=== PATIENT | female | born 1980 | race Caucasian/White ===

== ENCOUNTER 2018-08-15 13:52 | Inpatient (IN) ==
--- NOTE | 2018-08-15 14:52 | Anesthesia Evaluation PreOp ---
Date of Encounter: 08/15/18 Time of Encounter: 14:30 - Past History Planned Operation: RCS Cardiac History: Denies any Significant Hx Pulmonary History: Denies Any Significant HX REGISTERED NURSE NURSERY History: Denies Any Significant HX Other Medical History: Denies Any Significant HX Anesthesia History: No Prior Anesthetic Complications : Yes Test: Positive Alcohol Use: none Drug use: none Medications and Allergies Amoxicillin 875 mg PO BID #20 tablet 05/25/15 [Rx] Meclizine HCl [Verticalm] 25 mg PO TID PRN #30 tablet 05/25/15 [Rx] Ondansetron [Zofran] 8 mg PO TID PRN #9 tablet 05/25/15 [Rx] Pseudoephedrine [Sudafed] 30 - 60 mg PO Q4HR PRN #30 tablet 05/25/15 [Rx] Vitamin Tablet 1 tab PO DAILY 08/09/18 [History] Allergy/AdvReac Type Severity Reaction Status Date / Time No Known Allergies Allergy Verified 08/09/18 15:24 - Meds/Allergy Pre-op Review Medications Reviewed: Yes Allergies Reviewed: No Beta Blockers on Current Med List: No Anesthesia Exam - HEENT Pupil (Motor): Pupils equal Mallampati: II Teeth: Normal Oral Opening: Greater than 3 - REGISTERED NURSE NURSERY LOC: Oriented REGISTERED NURSE NURSERY Motor: Normal RUE, Normal LUE, Normal RLE, Normal LLE, Normal Face REGISTERED NURSE NURSERY Sensory: Normal: RUE, LUE, RLE, LLE, Face - Cardiac Rhythm: Regular Murmur: None JVD: No Carotid Bruit: No - Pulmonary Breath Sounds: bilateral Clear Respiratory Effort: Symmetrical Anesthesia Assess/Plan ASA Score: 3 Level of consciousness: Cooperative Anesthetic Plan: Spinal Monitoring Plan: Standard Monitors
[2018-08-15] MEDS ORDERED: CeFAZolin Syr 3,000MG/30 ML 3,000 MG/30 ML SYRINGE IVPB ONE (14:58)
[2018-08-15] MEDS ORDERED: Famotidine 20 MG/2 ML VIAL IVP ONE (14:58)
[2018-08-15] MEDS ORDERED: Ringers Solution, Lactated 1,000 ML IVC ONE (14:58)
[2018-08-15] MEDS ORDERED: Metoclopramide 10 MG/2 ML VIAL IVP ONE (14:58)
[2018-08-15] MEDS ORDERED: Ringers Solution, Lactated 1,000 ML IVC SCH (15:00)
--- NOTE | 2018-08-15 15:43 | OB/GYN History & Physical ---
Date of Encounter: 08/15/18 Time of Encounter: 15:41 Assessment and Plan (1) Previous section Current visit: Yes Status: Acute 38yo presents for repeat LTCS at term 1. Scheduled rLTCS - hx of 2 prior LTCS performed by Dr. Holcomb - poor PNC this , luckily with good dating (1st TM) - large infant, measuring 40+wks GA - consents signed with patient in office - labs ordered and pending DISPO: Admitted to labor and delivery for scheduled rLTCS at term. Scant PNC, NICU to be notified. MD SANDRA History of Present Illness Chief complaint: 38yo female scheduled CS HPI: Ms. Rivera is a 38 year old female at 39+1wks GA who presents for scheduled repeat LTCS Patient with scant PNC. Patient recently seen by Dr. Holcomb in the office last week at 38+ weeks GA. Patient luckily had intermittent PNC in [place]. Hx of prior deliveries 10+ years ago, performed by Dr. Holcomb. Uncomplicated. No indication of uterine window with prior deliveries. Patient is morbidly obese, and short stature. Patient was consented for delivery by repeat LTCS. Past Med Surg Social Fam HX - Past Medical History Medical history: no medical history Psychiatric history: anxiety, PTSD - Past Surgical History Surgical History: other Additional surgical history: left rotator cuff - Social History Smoking Status: Never smoker Smokeless Tobacco Status: No Alcohol use: none Drug use: none - Family History Father Living Status: Hx Family Cardiac Disorders: Yes Hx Family Respiratory Disorders: Yes Hx Family Cancer: Yes (lung cancer) Hx Family GI Disorders: No Hx Family Genitourinary Disorders: No Hx Family Endocrine Disorder: No Hx Family Musculoskeletal Disorders: No Hx Family Neuromuscular Disorders: No Hx Family Neurologic Disorders: No Hx Family HEENT Disorders: No Hx Family Autoimmune Disorders: No Hx Family Reproductive Disorders: No Hx Family Psychosocial Disorders: No Hx Family Medical Disorders: No Obstetrical History - Pregnancies : 3 Term: 2 Livin Medications and Allergies Vitamin Tablet 1 tab PO DAILY 08/09/18 [History] Allergy/AdvReac Type Severity Reaction Status Date / Time No Known Allergies Allergy Verified 08/15/18 14:51 Exam - Constitutional Constitutional: well developed, well nourished, no acute distress, average body habitus - HEENT HEENT: Normocephaly, Mucus Membranes Moist - Neck Neck exam: full ROM - Lungs Respiratory exam: CTAB - Cardiovascular Cardiovascular exam: RRR - Abdomen Abdomen: Present: bowel sounds normal - Vagina Vagina: Present: normal moisture - Uterus Uterus exam: Present: normal size - Anus/Rectum Anus/Rectum: Present: normal perianal skin Results All other labs normal.
[2018-08-15 16:03] LABS: Amphetamine Screen,Urine Negative ng/mL (Cutoff=1000); Barbiturate Screen,Urine Negative ng/mL (Cutoff=200); Benzodiazepines Screen,Urine Negative ng/mL (Cutoff=200); Cannabinoid Screen,Urine Negative ng/mL (Cutoff = 50); Cocaine Screen,Urine Negative ng/mL (Cutoff= 300); Opiate Screen,Urine Negative ng/mL (Cutoff=300); Phencyclidine Screen,Urine Negative ng/mL (Cutoff=25)
[2018-08-15 16:42] LABS: Basophils % 0.3 %; Eosinophils # 0.1 K/mcL (0.0-0.6); Eosinophils % 0.5 %; Hematocrit 38.4 % (35.3-44.9); Hemoglobin 12.6 g/dL (11.5-15.4); Immature Granulocytes % 0.6 % (0-4); Lymphocytes # 1.4 K/mcL (0.6-4.6); Lymphocytes % 12.9 %; Mean Corpuscular HGB Conc 32.8 g/dL (31.6-35.5); Mean Corpuscular Hemoglobin 28.1 pg (28.0-33.3); Mean Corpuscular Volume 85.5 fL (83.0-100.0); Mean Platelet Volume 12.8 fL (9.4-12.4); Monocytes # 0.7 K/mcL (0.0-1.3); Monocytes % 6.1 %; Neutrophils # 8.7 K/mcL (1.6-8.9); Platelet Count 248 K/mcL (140-400); Red Blood Count 4.49 M/mcL (3.82-4.97); Red Cell Distribution Width 13.6 % (11.5-14.5); Segmented Neutrophils % 79.6 %
[2018-08-15] MEDS ORDERED: Ringers Solution, Lactated 1,000 ML ONE (16:42)
[2018-08-15] MEDS ORDERED: *HR* FentaNYL (PF) 100 MCG/2 ML VIAL ONE (16:43)
[2018-08-15] MEDS ORDERED: Dexamethasone 4 MG/ML VIAL ONE (16:43)
[2018-08-15] MEDS ORDERED: Ondansetron 4 MG/2 ML VIAL ONE (16:43)
[2018-08-15] MEDS ORDERED: *HR* Oxytocin 10 UNIT/ML VIAL IM ONE (16:43)
[2018-08-15] MEDS ORDERED: *HR* Morphine Sulfate/PF 10 MG/10 ML AMPUL ONE (16:43)
[2018-08-15] MEDS ORDERED: EPHEDrine 50 MG/ML VIAL ONE (16:58)
[2018-08-15] MEDS ORDERED: *HR* Phenylephrine 10 MG/ML VIAL ONE (16:59)
[2018-08-15] MEDS ORDERED: Lidocaine -MPF 1% 5 ML AMPUL ONE (17:00)
--- NOTE | 2018-08-15 17:43 | Anesthesia Procedures ---
Date of Encounter: 08/15/18 Time of Encounter: 16:50 Procedures: Anesthesia - Epidural/Spinal Patient ID/Chart reviewed: Yes Patient examined: Yes OB Eval: Gestational age: 40.3 OB Eval: : 5 OB Eval: Hx Para: 3 OB Eval: Contractions: Non-stressed pattern Consent Obtained: Yes Site Prep: Aseptic Technique, Sterile prep and drape, Povidone-Iodine 1% Patient position: upright Amount of Local Anesthetic used: 3 Interspace Used: L4-L5 Loss of Resistance (LAUREN): No Blood: No CSF: Yes Paresthesia: Yes Spinal Needle Gauge: 22 Procedure: TOLERATED PROCEDURE WELL SAB BUPIVICAINE 0.25% 2.2ML FENTANYL 10MCG, DURAMORPH 0.3MG Vitals + FHT's: STABLE THROUGHOUT SEE NURSING NOTES
[2018-08-15] MEDS ORDERED: Simethicone 80 MG TAB.CHEW PO PRN (18:02)
[2018-08-15] MEDS ORDERED: Metoclopramide 10 MG/2 ML VIAL IVP PRN (18:02)
[2018-08-15] MEDS ORDERED: Ondansetron 4 MG/2 ML VIAL IVP PRN (18:02)
[2018-08-15] MEDS ORDERED: *HR* OxyCODONE/APAP 5/325 TABLET PO PRN (18:02)
[2018-08-15] MEDS ORDERED: Sennosides 8.6 MG TABLET PO PRN (18:02)
--- NOTE | 2018-08-15 18:13 | OB/GYN Procedure Note ---
Section - Date of procedure: 08/15/18 Preop diagnosis: desires repeat Post-op diagnosis: same Procedure: repeat low transverse Surgeon: Christina Bolaños (anatomic pathology assistant Dr. Holcomb 2/2 macrosomic baby and obese mother) Quantitated Blood Loss: 500 Was there an anatomic pathology assistant present: Yes Plasterer Journeyman: Buddy Holcomb Anesthesia Type: Epidural section complications: none Disposition: L&D Recovery Room Specimens: Placenta, Cord segment, Cord blood - Infant (s) Infant A Infant Delivery Date: 08/15/18 Delivery Time: 17:27 Presentation: vertex Position: OA Gender: Male Viability: Viable Pounds: 9 Ounces: 12 Specimens collected: cord blood Placenta: spontaneous Cord: other - Narrative Narrative: Patient was taken to the OR where spinal anesthesia was found to be adequate. The patient was prepped and draped in the usual, sterile fashion. Pfannenstiel skin incision was performed and taken down to the level of the fascia. Once scored, we were able to extend bilaterally. FAscia was then tented up and dissected down from the rectus abdominis. We then turned inferiorly and performed this as well. We then bluntly the rectus abdominis and entered the peritoneum. Bladder blade was placed as the lower uterine segment was visualized. We were able appreciated the reflection of the bladder. We performed a hysterotomy superior to the reflection of the bladder. We then bluntly the hysterotomy incision both superiorly and inferiorly. AROM was performed for clear fluid. Vertex presentation appreciated. With adequate fundal pressure we were able to deliver term baby boy. was vigorous and crying. Delayed cord clamping for 60 seconds prior to cord clamping. Cord blood was collected. Segment was taken, gases were not sent. Placenta was removed with manual manipulation. Uterus was exteriorized as we then cleared the entirety of the endometrial contents. Using 0-vicryl, we then began closing the hystertomy in a running locked fashion. Once found to be hemostatic after closure, we then returned the uterus back into the abdomen. We again appreciated hemostasis across the hysterotomy. Irrigation was performed with no active bleeding. Using loop 0-PDS, we closed both layers of the fascia. Again, hemostasis was appreciated. Small interrupted sutures were then placed along the subcutaneous fat. We then used ramírez to close the pfannenstiel skin incision. A MASHA was then placed on top of the wound incision with concern for possible wound infection given patient habitus. EBL: 500mL time of delivery: 1727 Male 4420 grams 9#12oz Apgars 8,9 Dr. Holcomb was present for the delivery of his patient as she was a repeat LTCS, with a known macrosomic baby. All counts were correct x3. MD SANDRA
[2018-08-15] MEDS ORDERED: Oxytocin 20 units/ LR 1000 mL 20 UNIT/1,000 ML BAG IVC SCH (18:15)
[2018-08-15] MEDS ORDERED: Acetaminophen IV 1,000 MG/100 ML INFUS..BTL IVPB ONE (18:46)
[2018-08-15] MEDS ORDERED: *HR* HYDROmorphone (PF) 1 MG/ML SYRINGE IVP PRN (18:46)
[2018-08-15] MEDS ORDERED: Ondansetron 4 MG/2 ML VIAL IVP ONE (18:46)
[2018-08-15] MEDS ORDERED: *HR* Promethazine 25 MG/ML VIAL IVP PRN (18:46)
[2018-08-15] MEDS ORDERED: Ketorolac 30 MG/ML VIAL IVP ONE (18:46)
[2018-08-15] MEDS ORDERED: Albuterol 2.5 MG/3 ML NEBULIZER IH ONE (18:46)
--- NOTE | 2018-08-15 23:29 | Anesthesia Evaluation Post Op ---
Date of Encounter: 08/15/18 Time of Encounter: 22:00 - Vital Signs Vital Signs: Vital Signs/O2 Sat/Glucose, Most Current Temp Pulse Resp BP Pulse Ox 08/15/18 21:45 98.1 F 96 16 127/85 96 08/15/18 21:15 98.1 F 103 16 135/82 95 08/15/18 20:45 98.1 F 90 16 137/84 95 - Lungs Lungs: Clear Ascult./Percussion - Airway Airway: Non-obstructed - Cardiovascular Regular Rate - Mental Status Mental Status: Alert & Oriented, Answers Appropriately - Pain Pain Scale: 0 - Nausea Vomiting Nausea Vomiting: Not Present - Hydration Hydration: NPO, Lopez catheter - Discharge PostOp Status: Transfer Patient to floor
[2018-08-16] MEDS: ceFAZolin 1,000 MG in Water for inj. (sterile) 20 ML 10 ML IVP SCH ×3 (00:22→16:56)
[2018-08-16 07:17] LABS: Basophils % 0.2 %; Eosinophils % 0.1 %; Hematocrit 31.4 % (35.3-44.9); Immature Granulocytes % 0.5 % (0-4); Lymphocytes # 1.5 K/mcL (0.6-4.6); Lymphocytes % 8.2 %; Mean Corpuscular HGB Conc 33.8 g/dL (31.6-35.5); Mean Corpuscular Hemoglobin 28.3 pg (28.0-33.3); Mean Corpuscular Volume 83.7 fL (83.0-100.0); Mean Platelet Volume 11.7 fL (9.4-12.4); Monocytes # 1.2 K/mcL (0.0-1.3); Monocytes % 6.5 %; Platelet Count 221 K/mcL (140-400); Red Blood Count 3.75 M/mcL (3.82-4.97); Red Cell Distribution Width 13.6 % (11.5-14.5); Segmented Neutrophils % 84.5 %
[2018-08-16 07:23] LABS: Hemoglobin 10.6 g/dL (11.5-15.4); Neutrophils # 15.8 K/mcL (1.6-8.9)
[2018-08-16] MEDS: Ibuprofen 600 MG TABLET PO PRN ×2 (08:54→22:21)
[2018-08-16] MEDS: Prenatal Vit/FA 1 EACH TABLET PO SCH (08:55)
--- NOTE | 2018-08-16 10:36 | OB/GYN Progress Note ---
Date of Encounter: 08/16/18 Time of Encounter: 10:34 - Assessment and Plan (1) Status post repeat low transverse section Current Visit: Yes Status: Acute Meeting day 1 milestones Continue routine care Anticipate discharge home tomorrow (2) Breast feeding status of mother Current Visit: Yes Status: Acute consult when necessary (3) anemia Current Visit: Yes Status: Acute Continue iron supplementation Subjective - Subjective Principal diagnosis: s/p RLTCS Interval history: Feeling well. Out of bed without dizziness. Some abdominal discomfort-using binder. Cramping minimal, using ibuprofen and Percocet. every 2- 3 hours. Some nipple soreness. Voiding without difficulty. Passing flatus, no BM yet. Tolerating clear liquid diet. Patient reports: appetite normal, voiding normally, pain well controlled, ambulating normally [place]: doing well, nursing well Objective - Vital Signs Latest vital signs: Vital Signs Temp Pulse Resp BP Pulse Ox 08/16/18 10:21 97.9 F 85 16 99/62 08/16/18 04:17 98.4 F 97 16 117/75 93 08/15/18 22:45 97.8 F 99 16 117/78 95 08/15/18 21:45 98.1 F 96 16 127/85 96 08/15/18 21:15 98.1 F 103 16 135/82 95 08/15/18 20:45 98.1 F 90 16 137/84 95 Intake and Output 08/15/18 08/16/18 08/16/18 23:59 07:59 15:59 Intake Total 750 / 750 Output Total 500 / 500 380 / 380 Balance -500 / -500 370 / 370 Intake: IV Fluids Ancef 1,000 MG In Water for inj . (sterile) 10 ML @ 200 mls/hr IVP Q8HR [facility] Rx#:[id number] Oral 740 / 740 Output: Estimated Blood Loss 500 / 500 Catheter 380 / 380 Other: Weight 117.934 kg 115.666 kg Patient Weight 08/16/18 23:59 Weight 115.666 kg - Exam Lungs: bilateral: normal Chest: Normal S1, Normal S2 Extremities: Present: normal Abdomen: Present: normal appearance, soft Incision: Present: normal, dry, dressed Uterus: Present: normal, firm Fundal Height: 0 (Midline and firm) - Labs Labs: Laboratory Results - last 24 hr 08/15/18 08/15/18 08/16/18 14:38 15:28 06:58 WBC 11.0 18.7 H D RBC 4.49 3.75 L Hgb 12.6 10.6 L D Hct 38.4 31.4 L MCV 85.5 83.7 MCH 28.1 28.3 MCHC 32.8 33.8 RDW 13.6 13.6 Plt Count 248 221 MPV 12.8 H 11.7 Immature Gran % 0.6 0.5 Seg Neutrophils % 79.6 84.5 Lymphocytes % 12.9 8.2 Monocytes % 6.1 6.5 Eosinophils % 0.5 0.1 Basophils % 0.3 0.2 Neutrophils # 8.7 15.8 H Lymphocytes # 1.4 1.5 Monocytes # 0.7 1.2 Eosinophils # 0.1 0.0 Basophils # 0.0 0.0 Urine Opiates Screen Negative Ur Barbiturates Screen Negative Ur Phencyclidine Scrn Negative Ur Amphetamines Screen Negative U Benzodiazepines Scrn Negative Urine Cocaine Screen Negative U Marijuana (THC) Screen Negative Ur Drug Screen Interp See Below
[2018-08-16 21:02] VITALS: BP 106/72
[2018-08-17] MEDS: Ibuprofen 600 MG TABLET PO PRN (04:29)
[2018-08-17] MEDS: Prenatal Vit/FA 1 EACH TABLET PO SCH (08:16)
--- NOTE | 2018-08-17 11:49 | Discharge Summary ---
Date of Encounter: 08/17/18 Time of Encounter: 11:47 - Discharge Diagnosis (1) Breast feeding status of mother Priority: Secondary Status: Acute (2) Status post repeat low transverse section Priority: Primary Status: Acute Comments: Pt meeting all post-op milestones and desires discharge home today. She is tolerating a regular diet, voiding, passing flatus. Pain well controlled with percocet and motrin. Mood is good. SHe desires to discuss contraception at [facility]. - Discharge Medications Prescriptions: New Ibuprofen [Motrin] 600 mg PO Q6HR PRN #30 tablet PRN Reason: Cramping OxyCODONE/APAP 5/325 [Percocet 5/325 MG] 1 each PO Q6HR PRN 7 Days #28 tablet PRN Reason: Moderate pain 4-6 Docusate [Colace] 100 mg PO BID #30 capsule Simethicone [Gas-X] 80 mg PO TID PRN tab.chew PRN Reason: Dyspepsia Breast Pump [BREAST PUMP] 1 each .ROUTE AD #1 each Continue Vitamin Tablet 1 tab PO DAILY Home Medications: Vitamin Tablet 1 tab PO DAILY 08/09/18 [History] Breast Pump [BREAST PUMP] 1 each .ROUTE AD #1 each 08/17/18 [Rx] Docusate [Colace] 100 mg PO BID #30 capsule 08/17/18 [Rx] Ibuprofen [Motrin] 600 mg PO Q6HR PRN #30 tablet 08/17/18 [Rx] OxyCODONE/APAP 5/325 [Percocet 5/325 MG] 1 each PO Q6HR PRN 7 Days #28 tablet 08/17/18 [Rx] Simethicone [Gas-X] 80 mg PO TID PRN tab.chew 08/17/18 [Rx] Allergies/Adverse Reactions: Allergy/AdvReac Type Severity Reaction Status Date / Time No Known Allergies Allergy Verified 08/15/18 14:51 Data Procedures and tests throughout hospitalization: Laboratory Tests 08/15/18 08/15/18 08/16/18 14:38 15:28 06:58 WBC 11.0 18.7 H D RBC 4.49 3.75 L Hgb 12.6 10.6 L D Hct 38.4 31.4 L MCV 85.5 83.7 MCH 28.1 28.3 MCHC 32.8 33.8 RDW 13.6 13.6 Plt Count 248 221 MPV 12.8 H 11.7 Immature Gran % 0.6 0.5 Seg Neutrophils % 79.6 84.5 Lymphocytes % 12.9 8.2 Monocytes % 6.1 6.5 Eosinophils % 0.5 0.1 Basophils % 0.3 0.2 Neutrophils # 8.7 15.8 H Lymphocytes # 1.4 1.5 Monocytes # 0.7 1.2 Eosinophils # 0.1 0.0 Basophils # 0.0 0.0 Urine Opiates Screen Negative Ur Barbiturates Screen Negative Ur Phencyclidine Scrn Negative Ur Amphetamines Screen Negative U Benzodiazepines Scrn Negative Urine Cocaine Screen Negative U Marijuana (THC) Screen Negative Ur Drug Screen Interp See Below Date of admission: 08/15/18 13:52 Primary care physician: PCP MAURILIO Consults: 08/15/18 15:03 Consult to [employer] Account Assistant (W&C) [CONS] Routine Reason For Exam: no custody of other kids, housing issues Reason for SW Consult: no custody of other children, housing issues. Discharging clinician: Saige Aquino Anticipated date of discharge: 08/17/18 - Patient Status Disposition: Home, Self-Care Condition: Good Functional capacity at discharge: independent ambulation Overall status at discharge: patient is progressing back to baseline - Discharge Instructions Follow Up With: NONE,PCP [Primary Care Provider] - Christina Bolaños MD [Partnered Physician] - - Diet and Activity Activity: increase activity as tolerated Diet: regular diet Hospital Course Reason for admission: section Delivery: section Episiotomy: none Laceration: none Other procedures: none complications: none Discharge diagnosis: IUP at term delivered Staples baby: female Hospital course: - Date of procedure: 08/15/18 Preop diagnosis: desires repeat Post-op diagnosis: same Procedure: repeat low transverse Surgeon: Christina Bolaños (assistant women's soccer coach Dr. Holcomb 2/2 macrosomic baby and obes e mother) Quantitated Blood Loss: 500 Was there an assistant women's soccer coach present: Yes Mechanical Engineering Lecturer: Buddy Holcomb Anesthesia Type: Epidural section complications: none Disposition: L&D Recovery Room Specimens: Placenta, Cord segment, Cord blood - (s) A Infant Delivery Date: 08/15/18 Infant Delivery Time: 17:27 Presentation: vertex Position: OA Gender: Male Viability: Viable Pounds: 9 Ounces: 12 Specimens collected: cord blood Placenta: spontaneous Cord: other Time Attestation: Total time spent providing and/or coordinating discharge services: Time Spent: Less than 30 minutes - VTE Documentation of Mechanical Device: Intermittent pneumatic compression device Exam - Constitutional Vitals: Temp Pulse Resp BP Pulse Ox 97.7 F 90 14 106/72 96 08/16/18 21:01 08/16/18 21:01 08/16/18 21:01 08/16/18 21:01 08/16/18 21:01 General appearance IM: A&O X 3, morbidly obese, pleasant, no acute distress - Respiratory Respiratory exam: Present: CTAB - Cardiovascular Cardiovascular exam IM: Present: RRR - GI/Abdominal GI/Abdominal exam IM: soft, no peritoneal signs Incision: dressed (MASHA dry and intact, staple removal appt made) - Uterine Tone: Firm Uterus Position: 1 Finger Below Umbilicus - Extremities Exam Extremities exam IM: Present: pedal edema (mild edema bilaterally) - Neurological Exam Neurological exam: normal gait, oriented X3 - Psychiatric Additional comments: reports good mood - Skin Additional comments: several scabbed areas on abdomen that are not near incision. Pt reports this is from scratching due to itching from spinal. SHe denies itching now. - Other Additional findings: OARRS reviewed
== END 2018-08-17 15:11 | disposition home or self-care (01) | DRG 540 ==
LOC: 1NENULAB 13:52 → 1NENUOBS 22:20
PROVIDERS: ADMIT Student in an Organized Health Care Education/Training Program; ATTEND Student in an Organized Health Care Education/Training Program